=== PATIENT | female | born 1975 | race Asian ===

== ENCOUNTER 2016-12-17 09:03 | Emergency (ER) | payer SELFPAY ==
[~2016-12-17] VITALS: Ht 152.4 cm; Wt 59.0 kg
[2016-12-17 09:10] VITALS: BP 112/69
[2016-12-17] MEDS ORDERED: IBUPROFEN600 MG ORAL (10:29)
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
[2016-12-17 10:50] VITALS: BP 112/69
--- NOTE | 2016-12-17 11:06 | Diagnostic Imaging Report ---
Indication: TRAUMA Technique: 3 views of the cervical spine Comparison: none Findings: Bony alignment is normal. No prevertebral soft tissue swelling. Vertebral body heights and disc spaces are preserved. No acute fractures. No dislocations. Impression: No acute bony trauma This agrees with the preliminary interpretation provided by the emergency room physician
--- NOTE | 2016-12-17 11:28 | Diagnostic Imaging Report ---
Indication: TRAUMA Technique: 3 views of the lumbar spine Comparison: None Findings:Bony alignment is normal. Vertebral body heights are preserved. The disc spaces are preserved the pedicles are intact. Sacral arches are preserved. Sacroiliac joint spaces are preserved. Impression:Negative This agrees with the preliminary interpretation provided by the emergency room physician
== END 2016-12-17 10:51 | disposition home or self-care (01) ==
LOC: EDBD 09:03 → EMR 09:18
DX: S16.1XXA Strain of muscle, fascia and tendon at neck level, initial encounter (principal); V43.62XA Car passenger injured in collision with other type car in traffic accident, initial encounter; Y93.9 Activity, unspecified; Y92.410 Unspecified street and highway as the place of occurrence of the external cause; M54.5 Low back pain; J45.909 Unspecified asthma, uncomplicated
CPT/HCPCS: 72020; 72040; 99284